=== PATIENT | female | born 1970 | race African-American/Black ===

== ENCOUNTER 2016-09-04 15:18 | Outpatient (CLI) | payer BC ==
[~2016-09-04 15:18] MED LIST: ATENOLOL100 MG PO; ENALAPRIL10 MG PO; METF500T PO; MICROZIDE12.5 MG PO; RANI150T78 PO
== END 2016-09-04 16:20 | disposition home or self-care (01) ==
LOC: RAD 15:18
DX: M79.604 Pain in right leg (principal); M25.551 Pain in right hip

== ENCOUNTER 2020-09-04 21:27 | Inpatient (IN) | payer OTHER ==
[~2020-09-04] VITALS: Ht 157.5 cm; Wt 105.4 kg
[2020-09-04 21:47] VITALS: BP 143/71; TEMP 99.2
[2020-09-04 22:21] LABS: PLATELET COUNT 174 K/uL (152-353)
[2020-09-04 22:31] LABS: POTASSIUM 3.1 mmol/L (3.6-5.2); SODIUM 134 mmol/L (136-145)
[2020-09-05 02:25] VITALS: BP 129/65; TEMP 100.8
--- NOTE | 2020-09-05 03:18 | NUR ---
PT. ARRIVED TO THE [facility] VIA WHEELCHAIR ON 4LPM FROM THE ED AT THIS TIME. PT. ADMITTING DX IS ACUTE DYSPNEA AND COVID PNUEMONIA. PT. COMPLAINS OF A FEVER FOR THE PAST 3 DAYS AND COMPAINS OF SHORTNESS OF BREATH AND NON-PRODUCTIVE COUGH. PT. VITALS UPON ADMISSION INCLUDE: BP: 149/94, ND: 92, O2 SAT: 94% AND RR: 18.
[2020-09-05 03:49] VITALS: BP 149/94; TEMP 100.3; Ht 157.5 cm; Wt 105.4 kg
--- NOTE | 2020-09-05 04:52 | NUR ---
PT SITTING UP IN A HIGH-FOWLERS POSITION ON TELEMETRY AND CONTINUOUS PULSE OXIMETRY SATTING 95% AT THIS TIME. PT. HAS NS INFUSING AT 50ML/HR AND GOT TYLENOL 500MG FOR A LOW GRADE FEVER OF 100.3. WILL CONTINUE TO MONITOR TEMPERATURE. NO ACUTE DISTRESS NOTED OR EXPRESSED BY PT. AT THIS TIME.
[2020-09-05 06:04] LABS: PLATELET COUNT 178 K/uL (152-353)
[2020-09-05 16:36] VITALS: BP 131/80; TEMP 98.6
--- NOTE | 2020-09-05 18:45 | NUR ---
ASSISTED PATIENT TO BATHROOM, PT CONTIUES TO WEAR OXYGEN VIA NC @ 4LPM. PATIENT DENIES ANY PAIN, NEEDS OR C/O AT THIS TIME.
--- NOTE | 2020-09-05 19:35 | NUR ---
SHIFT ASSESSMENT COMPLETED. PATIENT IS RESTING QUIETLY WITH EYES OPEN WATCHING TV. PATIENT IS ON 4 LPM VIA NC WITH SPO2 91-92%. IV 20G TO RAC PATENT AND INTACT INFUSING NS AT 50 ML W/O DIFFICULTY. BED LOCKED IN LOW POSITION, SIDE RAILS UP X2, CALL HANKINS WITHIN REACH.
[2020-09-05 21:09] VITALS: BP 132/69; TEMP 99
--- NOTE | 2020-09-05 23:18 | NUR ---
PATIENT CALLED NURSES STATION FOR ASSISTANCE. PATIENT STATED SHE NEED TO USE THE BATHROOM. PATIENT UNHOOKED FROM IV POLE AND PATIENT WAS ABLE TO AMBULATE TO THE BATHROOM. PATIENT VOIDED APPROX. 400 ML OF YELLOW URINE. PATIENT DOES GET EXERTED. PATIENT WAS ABLE TO AMBULATE BACK TO BED WITHOUT ASSISTANCE.
[2020-09-06] VITALS: BP 146/78; TEMP 99
--- NOTE | 2020-09-06 03:25 | NUR ---
PATIENT PULSE OX TELEMETRY READING 86% ON 4LPM. PATIENT STATED SHE COULD NOT SLEEP WITH HER OXYGEN ON IT WAS TO MUCH PRESSURE IN HER NOSE. PATIENT DECREASED TO 3 LPM AND WITH HER ALERT HER SPO2 WAS READING 91%. WILL CONTINUE TO MONITOR.
[2020-09-06 05:42] LABS: PLATELET COUNT 197 K/uL (152-353)
[2020-09-06 06:17] LABS: POTASSIUM 3.5 mmol/L (3.6-5.2)
[2020-09-06 08:00] VITALS: BP 140/84; TEMP 98
--- NOTE | 2020-09-06 11:50 | NUR ---
PT'S O2 NOTED TO BE 88-89% AT THIS TIME. ENCOURAGED PT TO TAKE DEEP BREATH. NOTIFIED RESPIRATORY OF PT'S CURRENT O2 SAT. NO DISTRESS NOTED AT THIS TIME.
[2020-09-06 12:11] VITALS: BP 125/66; TEMP 98.7
--- NOTE | 2020-09-06 12:21 | NUR ---
[facility] RESPIRATORY AT BEDSIDE. PT'S O2 ON 4LPM NC. PT O2 SATS NOTED TO BE 92-95% AT THIS TIME.
[2020-09-06 16:00] VITALS: BP 118/71; TEMP 98.3
--- NOTE | 2020-09-06 16:49 | NUR ---
PT GIVEN ANOTHER IS AND INSTRUCTYIONS GIVEN AT BS ON HOW TO USE . EXPLAINED TO PT TO WORK WITH IS WHILE AWAKE EVERY HR AND GOAL AT THIS TIME IS 1500ML. PT UNABLE TO PULL 1500; PT ONLY ABLE TO PULL 1000 AT THIS TIME,, AFTER PT USES IS PT COUGHED AND I EXPLAINED THIS WAS NORMAL. PT VERBALZIED UNDERSTANDING.
[2020-09-06 20:00] VITALS: BP 134/75; TEMP 98.5
[2020-09-07] VITALS: BP 104/60; TEMP 98.4
--- NOTE | 2020-09-07 00:05 | NUR ---
WHILE OBTAINING VITALS, PT V/O SHE WAS EXPERIENCING SHORTNESS OF BREATH. SPO2 IS 86%, PT RECEIVING OXYGEN VIA NC AT 5LPM. ADMINISTERED COMBIVENT INHALER AND PROVIDED CPT TO PT WITH RESPIRATORY AT BEDSIDE. NOTIFIED ER PHYSICIAN, RECEIVED NEW ORDERS FOR LASIX 40MG VIA IVP AND CHEST XRAY, NOTED AND CARRIED OUT.
--- NOTE | 2020-09-07 00:50 | NUR ---
CHEST XRAY PERFORMED AND ADMINISTERED LASIX 40MG VIA IVP PER PHYSICIAN ORDERS. PATIENT'S WEIGHT PRIOR TO LASIX ADMINISTRATION IS 232.6 LBS, SPO2 REMAINS 86-90%.
[2020-09-07 04:00] VITALS: BP 130/74; TEMP 99
[2020-09-07 06:41] LABS: PLATELET COUNT 239 K/uL (152-353)
[2020-09-07 07:01] LABS: POTASSIUM 3.2 mmol/L (3.6-5.2)
[2020-09-07 08:00] VITALS: BP 139/83; TEMP 98.2
[2020-09-07 12:00] VITALS: BP 1124/84; TEMP 97.6
[2020-09-07 16:00] VITALS: BP 129/80; TEMP 98.8
--- NOTE | 2020-09-07 18:27 | NUR ---
i spoke with pt this am about discharge plans and needs. She stated she lives at home with her boyfriend and her mother. She stated that she does not currently have any needs upon discharge but her mother is home sick now. I will fu after speaking with Dr. Dee about her DC care.
--- NOTE | 2020-09-07 19:30 | NUR ---
IN PT'S ROOM TO CHECK ON PT. PT IS IN THE BATHROOM WITH DOOR CRACKED OPEN. PT DENIES ANY NEEDS AT THIS TIME. ELEVATOR SERVICE TECHNICIAN WILL COME BACK TO MONITOR.
[2020-09-07 20:00] VITALS: BP 128/73; TEMP 98.4
--- NOTE | 2020-09-07 20:10 | NUR ---
AWAKE IN BED SITTING UP WITH NO S/S OF ACUTE DISTRESS OR PAIN NOTED, PT ALERT AND ORIENTED DENIES ANY NEEDS AT THIS TIME, RESP RATE NONLABORED WITH O2 AT 5LPM VIA NC, TELEMETRY IN USE WITH REGULAR RATE, IV INTACT, SKIN WARM AND DRY, ENCOURAGED TO CALL NEEDED, RAILS UP, BED IN LOW POSITION, CALL LIGHT IN REACH.
--- NOTE | 2020-09-07 22:33 | NUR ---
PT BEGAN TO D-SAT, TUBE LANCER WENT INTO PT'S ROOM AND PT WAS ASLEEP. TUBE LANCER TIGHTENED UP PT'S NASAL CANULA AND CHECKED ALL CONNECTIONS TO ENSURE THEY WERE CONNECTED. PT IS NOW MAINTAINING AN O2 SAT OF 91%. PT IS SHOWING NO SIGNS OF DISTRESS AT THIS TIME. WILL CONTINUE TO MONITOR.
[2020-09-08] VITALS: BP 128/71; TEMP 98.1
--- NOTE | 2020-09-08 00:45 | NUR ---
RESTING IN POSITION OF COMFORT WITH EYES CLOSED, NO S/S OF PAIN OR DISTRESS NOTED, O2 AT 5LPM VIA NC, TELEMETRY IN USE, WILL MONITOR, RAILS UP, BED IN LOW POSITION, CALL LIGHT IN REACH.
--- NOTE | 2020-09-08 02:30 | NUR ---
PT RESTING IN BED WITH EYES CLOSED ON HER R SIDE WITH NO S/S OF PAIN OR DISTRESS NOTED, RESP RATE NONLABORED, O2 AT 5 LPM VIA NC WITH SAT OF 93%, IV INTACT, TELEMETRY IN USE WITH REGULAR RATE, WILL MONITOR CLOSELY, RAILS UP, BED IN LOW POSITION, CALL LIGHT IN REACH, REMAINS ON ISOLATION FOR COVID.
[2020-09-08 04:00] VITALS: BP 122/61; TEMP 98.8
[2020-09-08 05:43] LABS: PLATELET COUNT 245 K/uL (152-353)
--- NOTE | 2020-09-08 06:00 | NUR ---
RESTING IN POSITION OF COMFORT ON HER R SIDE IN BED WITH EYES CLOSED, NO S/S OF PAIN OR DISTRESS NOTED, IV INTACT, RESP RATE NONLABORED, O2 AT 5LPM VIA NC, TELEMETRY IN USE, WILL MONITOR CLOSELY, RAILS UP, BED IN LOW POSITION.
[2020-09-08 06:02] LABS: POTASSIUM 3.1 mmol/L (3.6-5.2)
[2020-09-08 08:00] VITALS: BP 119/60; TEMP 98.3
--- NOTE | 2020-09-08 08:01 | NUR ---
RT ATTEMPTED TO WEAN FIO2 TO 36% AT 4LPM. SPO2 AT 93% FOR A FEW MINUTES. APPROX 10 MINS LATER PT SPO2 BETWEEN 87-89%. INCREASED FIO2 BACK TO 5LPM. SPO2 NOW AT 90-92%
--- NOTE | 2020-09-08 09:01 | NUR ---
RT TO ASSESS PT. SPO2 IS IN THE HIGH 70S LOW 80 ON 5LPM NC. RT PLACED PT ON 50% VENTI MASK AT 15LPM, SPO2 NOW AT 88%. WILL CONTINUE TO MONITOR. PT BUN IS AT 20. NURSE CALLING DR DAY FOR LASIX ORDER.
--- NOTE | 2020-09-08 09:52 | NUR ---
PT SPO2 AT 88-91% ON 50% VENTI MASK. WILL CONTINUE TO MONITOR.
[2020-09-08 12:00] VITALS: BP 125/72; TEMP 97.8
--- NOTE | 2020-09-08 13:11 | NUR ---
PT SPO2 AT 95% ON 50% VENT MASK. PLACED PT ON 5LPM NC WITH HUMIDITY. SPO2 AT 93%. WILL CONTINUE TO MONITOR.
[2020-09-08 16:00] VITALS: BP 117/69; TEMP 98.5
[2020-09-08 20:00] VITALS: BP 124/61; TEMP 98.3
--- NOTE | 2020-09-08 20:45 | NUR ---
PM. MEDS GIVEN AT THIS TIME. PT. TOLERATED WELL. NO S/S OF ACUTE DISTRESS NOTED AT THIS TIME. PT CURRENTLY ON 5L/M NC. TELEMETRY, PULSE OX AND IV ALL INTACT. INCENTIVE SPIROMETER USAGE WAS A CONSISTENT 750 WITH ALL 10 BREATHS. PT EXPRESSES THAT SHE IS TIRED TONIGHT. PT. UTILIZED PULMICORT AND COMBIVENT IHALERS WITH PM MEDS. PT. SITTING UP IN A HIGH FOWLERS POSITION WITH SIDE RAILS UP TIMES TWO WITH BED IN LOWEST POSITION WITH CALL LIGHT WITHIN REACH. BLOOD SUGAR WAS 244 AND COVERED.
--- NOTE | 2020-09-08 23:02 | NUR ---
PT. SATTING 84% ON 5L/M NC. EDUCATED ON SLOW, CONCENTRATED BREATHS. PT. GOT UP TO 88% DURING THIS EXERCISE. PLACED PT. ON 6L/M NC. WILL MONITOR FOR ANY ACUTE CHANGES OR ANY FURTHER INTERVENTIONS.
[2020-09-09] VITALS (7 sets, daily range): BP systolic 109–184; BP diastolic 49–85; TEMP 97.9–98.8
--- NOTE | 2020-09-09 | NUR ---
PT. SATTING 94% ON 6L/M. NO S/S OF ACUTE DISTRESS NOTED OR EXPRESSED BY PT. WILL CONTINUE TO MONITOR.
--- NOTE | 2020-09-09 00:12 | NUR ---
PT. HAD LARGE BOWEL MOVEMENT AT THIS TIME.
[2020-09-09 06:50] LABS: PLATELET COUNT 292 K/uL (152-353)
[2020-09-09 07:15] LABS: POTASSIUM 3.3 mmol/L (3.6-5.2)
--- NOTE | 2020-09-09 09:20 | NUR ---
PATIENT'S OXYGEN DECREASED TO 5LPM VIA NC, PT TOLERATING WELL.
--- NOTE | 2020-09-09 09:45 | NUR ---
PATIENT'S SPO2 IS 94-97% ON 5LPM VIA NC. NAD NOTED WITH PATIENT AT THIS TIME.
--- NOTE | 2020-09-09 10:45 | NUR ---
ASSISTED PATIENT TO SHOWER, PT TOLERATED WELL. LINENS CHANGED. PATIENT'S SPO2 94-98% ON 5LPM VIA NC.
--- NOTE | 2020-09-09 11:20 | NUR ---
PATIENT'S IV INFILTRATED TO RFA D/C'D WITH TIP IN TACT, 4X4 PLACED OVER SITE AND SECURED WITH TAPE. 20G INSERTED TO LAC WITHOUT DIFFICULTY, GOOD BLOOD RETURN NOTED AND FLUSHES WELL WITH NS 10ML. PATIENT DENIES ANY PAIN OR BURNING TO SITE, NO REDNESS, EDEMA OR DRAINAGE NOTED TO IV SITE. PATIENT INSTRUCTED TO CALL FOR ANY CHANGES TO IV SITE, NEEDS OR C/O AT THIS TIME.
--- NOTE | 2020-09-09 12:25 | NUR ---
PATIENT SITTING UP IN BEDSIDE CHAIR AND USING INCENTIVE SPIROMETER AND PULLING 750 AT THIS TIME. PATIENT ENCOURAGED TO USE IS EACH TIME A COMMERCIAL COMES ON, PT V/O UNDERSTANDING.
--- NOTE | 2020-09-09 20:30 | NUR ---
PM. MEDS GIVEN AT THIS TIME. PT. TOLERATED WELL. PT SATTING 95% ON 5L/M NC. NO S/S OF ACUTE DISTRESS NOTED OR EXPRESSED BY PT. AT THIS TIME. TELEMETRY IS SHOWING 65- NORMAL SINUS RHYTHM. PT. IN A HIGH FOWLERS POSITION WITH SIDE RAILS UP TIMES TWO WITH BED IN LOWEST POSITION WITH CALL LIGHT WITHIN REACH. PT. COVERED WITH 30 U OF LEVEMIR AND 3 U OF NOVOLOG FOR A BLOOD GLUCOSE LEVEL OF 210.
[2020-09-10] VITALS (7 sets, daily range): BP systolic 104–139; BP diastolic 57–83; TEMP 97.7–99
[2020-09-10 06:11] LABS: PLATELET COUNT 304 K/uL (152-353)
[2020-09-10 06:44] LABS: POTASSIUM 2.7 mmol/L (3.6-5.2)
--- NOTE | 2020-09-10 11:06 | NUR ---
OXYGEN DECREASED TO 4LPM VIA NC, PT'S SPO2 IS 96% AT THIS TIME.
--- NOTE | 2020-09-10 15:08 | NUR ---
PATIENT'S OXYGEN DECREASED TO 4LPM VIA NC, SPO2 96%.
--- NOTE | 2020-09-10 20:45 | NUR ---
PM ASSESSMENT COMPLETE AT THIS TIME. NOTABLE BILATERAL LOWER EXTREMITY EDEMA NOTED. PT. EDUCATED ON AMBULATING MORE FREQUENTLY. PM MEDS GIVEN AT THIS TIME. PT. TOLERATED WELL. PULMICORT AND COMBIVENT UTILIZIED AT THIS TIME. PT. GOT UP TO 750 ON THE INCENTIVE SPIROMETER AND STATES "I AM WEAKER AT NIGHT". PT. TOLERATING 3L/M NC AT THIS TIME WITH A SPO2 READING OF 93% AND RESPIRATIONS 17. NO S/S OF ACUTE DISTRESS NOTED OR EXPRESSED BY PT. PT. SITTING UP IN A LOW-FOWLERS POSITION TALKING ON THE PHONE WITH SIDE RAILS UP TIMES TWO WITH BED IN LOWEST POSITION AND CALL LIGHT WITHIN REACH. TELEMETRY, PULSE OX AND IV ALL INTACT AND WORKING. PT'S BS WAS 222 AND COVERED WITH 30 U OF LEVEMIR AND 3 U OF INSULIN. PT. DENIES ANY PAIN OR ANY FURTHER NEEDS AT THIS TIME.
[2020-09-11] VITALS: BP 143/85; TEMP 98.1
--- NOTE | 2020-09-11 00:15 | NUR ---
PT. TOLERATED 3L/M NC WELL. PT. DECREASED TO 2L N/C AT THIS TIME. PT'S SPO2 LEVEL IS 95% AT THIS TIME.
[2020-09-11 04:00] VITALS: BP 128/72; TEMP 98.6
[2020-09-11 05:40] LABS: PLATELET COUNT 286 K/uL (152-353)
[2020-09-11 06:06] LABS: POTASSIUM 3.3 mmol/L (3.6-5.2)
[2020-09-11 08:00] VITALS: BP 121/73; TEMP 97.8
[2020-09-11 12:00] VITALS: BP 115/55; TEMP 98.5
[2020-09-11 16:00] VITALS: BP 136/84; TEMP 97.9
[2020-09-11 20:00] VITALS: BP 131/65; TEMP 98.3
--- NOTE | 2020-09-11 21:00 | NUR ---
SHIFT ASSESSMENT COMPLETED. NO ACUTE DISTRESS NOTED. NO IV PRESENT AT THIS TIME. NO S/S OF PHLEBITIS NOTED TO THE LEFT FOREARM. PATIENT DENIES ANY N/V/D. PATIENT STATES " I FEEL BETTER TODAY".
[2020-09-12] VITALS: BP 129/73; TEMP 98.3
[2020-09-12 04:00] VITALS: BP 117/72; BP 135/72; TEMP 98.4; TEMP 98.8
[2020-09-12 05:36] LABS: PLATELET COUNT 309 K/uL (152-353)
[2020-09-12 06:06] LABS: POTASSIUM 3.8 mmol/L (3.6-5.2)
--- NOTE | 2020-09-12 06:30 | NUR ---
IV 22G X1 ATTEMPT TO THE LEFT HAND STARTED AT THIS TIME.
[2020-09-12 08:00] VITALS: BP 153/81; TEMP 97.6
--- NOTE | 2020-09-12 10:29 | NUR ---
PT IN HIGH FOWLERS POSITION IN BED. DENIES ANY PAIN OR DISCOMFORT. DECREASED EDEMA NOTED TO LOWER EXTREMITIES. PT AMBULATES TO BATHROOM WITH STEADY GAIT AND NO ASSISTANCE. PT ALERT AND AWAKE. NAD NOTED. O2 @2LPM VIA NC INTACT. SATS <90S. IV SITE TO LEFT HAND INTACT WITH NO SWELLING OR REDNESS NOTED TO SITE AND FLUSHES WITHOUT DIFFICULTY. ADEQUATE APPETITE. PT ED ON MAINTAINING DIABETIC DIET AT HOME.
[2020-09-12 12:00] VITALS: BP 127/79; TEMP 97.7
--- NOTE | 2020-09-12 14:37 | NUR ---
PT SITTING UP IN CHAIR WATCHING TV. DENIES ANY PAIN OR DISCOMFORT. NAD NOTED. O2 VIA NC @2LPM INTACT. JW=198 WITH NO COVERAGE PER SLIDING SCALE. PT ALERT. NO VOICED COMPLAINTS. APPETITE ADEQUATE.
[2020-09-12 16:00] VITALS: BP 121/60; TEMP 100.4
[2020-09-12 20:00] VITALS: BP 122/56; TEMP 99.5
--- NOTE | 2020-09-12 21:47 | NUR ---
PM ASSESSMENT COMPLETED AT THIS TIME. PM MEDS GIVEN AT THIS TIME. PT. TOLERATED WELL. PT. CURRENTLY SATTING 95% ON 3LPM NC. NO S/S OF ACUTE DISTRESS AT THIS TIME. PT'S BS WAS 199. APPROPRIATELY COVERED BY CABLE WORKER HELPER.
[2020-09-13] VITALS (7 sets, daily range): BP systolic 117–153; BP diastolic 57–88; TEMP 97.5–98.5
[2020-09-13 05:33] LABS: PLATELET COUNT 307 K/uL (152-353)
[2020-09-13 05:50] LABS: POTASSIUM 3.7 mmol/L (3.6-5.2)
[2020-09-14] VITALS: BP 133/86; TEMP 98.4
[2020-09-14 04:00] VITALS: BP 104/66; TEMP 98.9
[2020-09-14 08:00] VITALS: BP 124/73; TEMP 98.4
[2020-09-14 12:00] VITALS: BP 151/99; TEMP 98.1
--- NOTE | 2020-09-14 13:44 | NUR ---
pts order for home oxygen sent to [facility], [facility] via [place], she will pay wang $150 for first months rental and return if not needed after that. I s/w Jason @ [facility] [phone] and have faxed orders, they will drop off at admissions and collect moneyy. pt has been scheduled for [facility] telehealth appt with [facility] ph [phone] for 09/19/20 @ 10am. Pts family member Roxy Bain [phone] will be picking her up from hospital on DC.
[2020-09-14 16:00] VITALS: BP 132/86; TEMP 98.3
[2020-09-14] MEDS ORDERED: FAMOTIDINE20 MG PO (20:03)
[2020-09-14] MEDS ORDERED: ASCO500T18 PO (20:03)
[2020-09-14] MEDS ORDERED: CHOL100034 PO (20:03)
[2020-09-14] MEDS ORDERED: IPRAAER INH (20:04)
[2020-09-14] MEDS ORDERED: ZINC220C4 PO (20:04)
[2020-09-14] MEDS ORDERED: PULMICORT180 MCG/AC INH (20:05)
[2020-09-14] MEDS ORDERED: INSUINJP SC (20:18)
--- NOTE | 2020-09-14 21:06 | NUR ---
PT HAS BEEN DISCHARGED HOME FOR SELF CARE. EDUCATION HAS BEEN PROVIDED TO THE PT AND PT VERBALIZED UNDERSTANDING, EDUCATION WAS PRINTED AND GIVEN TO THE PT TO REVIEW AT A LATER TIME IF NEEDED. IV HAS BEEN REMOVED WITHOUT DIFFICULTY WITH CATHETER STILL INTACT. PT WALKED TO SISTER'S VEHICLE WHILE ATTACHED TO PORTABLE O2 SHOWING NO SIGNS OF DISTRESS. PT AND PERSONAL BELONGINGS WERE PLACED INSIDE PERSONAL VEHICLE. NO ACUTE DISTRESS WAS NOTED NOTED DURING DISCHARGE. HOME O2 EQUIPMENT WAS GIVEN TO PT UPON DISCHARGE ALONG WITH RECEIPT OF PURCHASE.
== END 2020-09-14 21:03 | disposition home or self-care (01) | DRG 177 ==
LOC: ED 21:27 → MED/SURG 09-05 01:30
PROVIDERS: Internal Medicine Endocrinology, Diabetes & Metabolism; ADMIT Emergency Medicine Emergency Medical Services; ATTEND Internal Medicine
DX: U07.1 COVID-19 (principal); J12.82 Pneumonia due to coronavirus disease 2019; J96.00 Acute respiratory failure, unspecified whether with hypoxia or hypercapnia; I10 Essential (primary) hypertension; E11.9 Type 2 diabetes mellitus without complications; E87.6 Hypokalemia
CPT/HCPCS: 36415; 36600; 80048; 80053; 81000; 81002; 81025; 82805; 82947; 83605; 83735; 84100; 84484; 85027; 85379; 85610; 87040; 87077; 87185; 87205; 87502; 87635; 93005; 94760; 96360; 96365; 96366; 96375; 99284; J0456; J1100; J1650; J1815; J1940; J1956; J2405; J2920; J2930; J3475; Q9963; U0003